=== PATIENT | male | born 1940 | race Caucasian/White ===

== ENCOUNTER 2021-12-17 06:32 | Day surgery (SDC) | payer MEDICARE, OTHER ==
[2021-12-17] VITALS (10 sets, daily range): BP systolic 115–149; BP diastolic 64–77
[~2021-12-17] VITALS: Ht 177.8 cm; Wt 84.7 kg
[2021-12-17] MEDS ORDERED: FAMO40TA58 PO (06:58)
[2021-12-17] MEDS ORDERED: DILT-96 PO (06:58)
[2021-12-17] MEDS ORDERED: LISI10TA27 PO (06:58)
[2021-12-17] MEDS ORDERED: ASPI81TA52 PO (06:59)
[2021-12-17] MEDS ORDERED: CHOL-4 PO (07:00)
[2021-12-17] MEDS ORDERED: normal saline 1,000 ML IV SCH (07:10)
[2021-12-17] MEDS ORDERED: diphenhydrAMINE 25mg capsule PO PRN (07:10)
[2021-12-17 07:31] LABS: BASOPHILS # (AUTO) 0.1 X10'3 (0-0.2); BASOPHILS % (AUTO) 1.1 % (0-1); EOSINOPHILS # (AUTO) 0.3 X10'3 (0-0.9); EOSINOPHILS % (AUTO) 5.1 % (0-6); HEMATOCRIT 35.1 % (42.0-52.0); HEMOGLOBIN 11.7 g/dl (14.0-17.9); LYMPHOCYTES # (AUTO) 1.4 X10'3 (1.1-4.8); LYMPHOCYTES % (AUTO) 26.4 % (21-51); MEAN CORPUSCULAR HEMOGLOBIN 30.3 PG (27.0-31.0); MEAN CORPUSCULAR HGB CONC 33.3 g/dL (33.0-36.5); MEAN CORPUSCULAR VOLUME 90.7 FL (78-98); MEAN PLATELET VOLUME 8.5 FL (7.4-10.4); MONOCYTES # (AUTO) 0.6 X10'3 (0-0.9); MONOCYTES % (AUTO) 10.5 % (2-12); NEUTROPHILS # (AUTO) 3.1 X10'3 (1.8-7.7); NEUTROPHILS % (AUTO) 56.9 % (42-75); PLATELET COUNT 265 X10'3 (140-440); RED BLOOD COUNT 3.87 X10'6 (4.70-6.10); WHITE BLOOD COUNT 5.4 X10'3 (4.5-11.0)
[2021-12-17 07:44] LABS: ALBUMIN 3.8 G/DL (3.4-5.0); ANION GAP 9 (8-16); BLOOD UREA NITROGEN 26 MG/DL (7-18); BUN/CREATININE RATIO 16.5 (5.4-32.0); CALCIUM 8.9 MG/DL (8.5-10.1); CHLORIDE 109 MMOL/L (99-107); CREATININE 1.58 MG/DL (0.60-1.10); GLUCOSE 109 MG/DL (70-104); MAGNESIUM 2.1 MG/DL (1.5-2.4); POTASSIUM 4.3 MMOL/L (3.5-5.1); SODIUM 142 MMOL/L (135-145); TOTAL CARBON DIOXIDE 24.2 MMOL/L (24-32); eGFR 42 ML/MIN
[2021-12-17] MEDS ORDERED: verapamil 2.5 mg/ml inj IV ONE (07:49)
[2021-12-17] MEDS ORDERED: nitroGLYCERIN-Tridil 50MG/D5W 250 ML IV ONE (07:49)
[2021-12-17] MEDS ORDERED: LIDOcaine 1%/PF 5ML 10 MG/ML VIAL ONE (07:49)
[2021-12-17] MEDS ORDERED: midazolam 1 mg/ML 2ml injection ONE ×2 (07:50→09:41)
[2021-12-17] MEDS ORDERED: iohexol 350MG/ML 100ml bottle IV ONE ×2 (07:50→09:41)
[2021-12-17] MEDS ORDERED: heparin 1,000unit/ml 10ml vial 10 ML ONE (07:50)
[2021-12-17] MEDS ORDERED: fentaNYL/PF 50MCG/1 ML 2ML syringe ONE (07:51)
[2021-12-17] MEDS ORDERED: normal saline 1000ml 1,000 ML IV SCH (10:35)
[2021-12-17] MEDS ORDERED: ondansetron/PF 4mg/2ml inj IV PRN (10:35)
[2021-12-17] MEDS ORDERED: HYDROcodone/acetaminophen 5mg/325mg tablet PO PRN (10:40)
[2021-12-17] MEDS ORDERED: HYDROcodone/acetaminophen 10/325mg tab PO PRN (10:40)
== END 2021-12-17 13:40 | disposition home or self-care (01) ==
LOC: SSTAY O 06:32
PROVIDERS: ATTEND Internal Medicine Cardiovascular Disease
DX: R07.9 Chest pain, unspecified (principal); I47.1 Supraventricular tachycardia; I10 Essential (primary) hypertension; K21.9 Gastro-esophageal reflux disease without esophagitis; Z90.49 Acquired absence of other specified parts of digestive tract; Z98.890 Other specified postprocedural states; Z90.5 Acquired absence of kidney; Z82.49 Family history of ischemic heart disease and other diseases of the circulatory system; Z79.899 Other long term (current) drug therapy; Z79.82 Long term (current) use of aspirin
CPT/HCPCS: 36415; 80048; 83735; 85025; 85610; 93005; 93458; 99152; 99153; C1760; C1769; C1894; J1644; J2250; J3010; J3490; J7030; Q0163; Q9967; A4620; A6258